=== PATIENT | female | born 1955 | race Caucasian/White ===

== ENCOUNTER 2019-02-23 12:16 | Day surgery (SDC) | payer BC ==
[2019-02-23] MEDS ORDERED: PROPOFOL 10 MG/ML VIAL IV ONE (12:17)
[2019-02-23] MEDS ORDERED: LIDOCAINE 2% MDV (20MG/ML) 20ML VIAL IV ONE (12:17)
--- NOTE | 2019-02-27 08:00 | Operative Note ---
OPERATION: COLONOSCOPY to the cecum. INDICATION: History of adenomatous polyps. The patient returns at this time for surveillance. Her last examination was 3 years ago. ANESTHESIA: Intravenous sedation was administered by the department of anesthesiology and included Diprivan titrated to effect. PROCEDURE: Following informed consent from this alert individual including a discussion of the risks and benefits of the procedure and an opportunity for the patient to ask questions, the patient was in the left lateral decubitus position. A digital rectal examination was performed. No abnormalities were noted. Following this, the Olympus [id number] video colonoscope was inserted into the rectum without resistance. The rectal mucosa had a normal appearance with normal folds and distensibility. The colonoscope was advanced up through the colon to the level of the cecum without much difficulty. Throughout the bowel the mucosa appeared normal, the folds were normal, and the bowel was fairly well distensible. The cecum was defined by noting the appendiceal orifice and ileocecal valve. The colon preparation overall was good. From the base of the cecum, the colonoscope was then withdrawn. No changes were noted until the sigmoid colon was reached. There were a few scattered diverticula noted in the sigmoid region. No polyps were seen throughout the bowel. Retroflexion in the rectum was endoscopically normal. The endoscope was straightened and withdrawn. The patient tolerated the procedure well and was returned to the recovery area in stable condition. IMPRESSION: 1. Sigmoid diverticulosis. 2. Otherwise unremarkable colonoscopy to the cecum. RECOMMENDATIONS: Because of the patient's prior history of adenomatous polyps, I did recommend a surveillance examination in 5 years' time or sooner if problems arise. As always, thank you for allowing me to participate in the care of your patient. ELMER
== END 2019-02-23 14:30 | disposition home or self-care (01) ==
LOC: HOP 12:16
PROVIDERS: ATTEND Internal Medicine Gastroenterology
DX: Z09 Encounter for follow-up examination after completed treatment for conditions other than malignant neoplasm (principal); Z86.010 Personal history of colon polyps; K57.30 Diverticulosis of large intestine without perforation or abscess without bleeding; J44.9 Chronic obstructive pulmonary disease, unspecified; I25.10 Atherosclerotic heart disease of native coronary artery without angina pectoris; E11.9 Type 2 diabetes mellitus without complications